=== PATIENT | male | born 1960 | race Caucasian/White ===

== ENCOUNTER 2018-01-07 05:43 | Day surgery (SDC) | payer MEDICARE ==
[2018-01-07] VITALS (8 sets, daily range): BP systolic 90–134; BP diastolic 57–90; PULSE 78–96; RESP 18; TEMP 98–99.3; O2SAT 95–98
[~2018-01-07] VITALS: Ht 180.3 cm; Wt 103.7 kg
[~2018-01-07 05:43] MED LIST: ASPI81 PO; CARV6.25 PO; CLOP75 PO; ENAL5TAB98 PO; FISH1000 PO; LEVO500T3 PO; NIAC500 PO; NORC10TA2 PO; OMEP20TA39 PO; VENL75XR PO
[2018-01-07] MEDS ORDERED: CHLORHEXIDINE GLUCONATE 2 % 1 PACK (2 CLOTHS) TOPICAL PRN (06:45)
[2018-01-07] MEDS: NS 1000 ML IV SCH ×2 (06:45→14:00)
[2018-01-07] MEDS ORDERED: POVIDONE IODINE 5% (ANTISEPSIS KIT) 4 APPLICATIONS EACH NARE SCH (06:45)
[2018-01-07] MEDS ORDERED: POVIDONE IODINE 5% (ANTISEPSIS KIT) 4 APPLICATIONS EACH NARE PRN (06:45)
[2018-01-07] MEDS ORDERED: METOPROLOL TARTRATE 25 MG TAB PO PRN (06:45)
[2018-01-07] MEDS ORDERED: LACTATED RINGER'S 1000 ML IV PRN (06:45)
[2018-01-07] MEDS ORDERED: MUPIROCIN 2% OINT 1 APPLIC/GM SYR NASAL SCH (06:45)
[2018-01-07] MEDS ORDERED: SODIUM CHLORID 0.9% 500 ML IV PRN (06:45)
[2018-01-07] MEDS ORDERED: CHLORHEXIDINE GLUCONATE 2 % 1 PACK (2 CLOTHS) TOPICAL SCH (06:45)
[2018-01-07] MEDS ORDERED: NO Heparin, Lovenox, Coumadin at least 12 hours prior to procedure. PRN (06:45)
[2018-01-07] MEDS ORDERED: VANCOMYCIN 1000 MG/NS 250 ML IV SCH ×2 (06:45)
[2018-01-07 07:15] LABS: AUTOMATED NEUTROPHIL # 4.8 TH/MM3 (1.8-7.7); BASOPHIL # 0.1 TH/MM3 (0-0.2); EOSINOPHIL # 0.7 TH/MM3 (0-0.4); EOSINOPHIL % 7.3 % (0.0-4.0); HEMATOCRIT 40.5 % (39.0-51.0); HEMOGLOBIN 13.7 GM/DL (13.0-17.0); LYMPH % 31.5 % (9.0-44.0); LYMPHOCYTE # 2.9 TH/MM3 (1.0-4.8); MEAN CELL VOLUME 90.2 FL (80.0-100.0); MEAN CORPUSCULAR HEMOGLOBIN 30.5 PG (27.0-34.0); MEAN CORPUSCULAR HGB CONC 33.9 % (32.0-36.0); MEAN PLATELET VOLUME 8.6 FL (7.0-11.0); MONO % 8.2 % (0.0-8.0); MONOCYTE # 0.8 TH/MM3 (0-0.9); PLATELET COUNT 284 TH/MM3 (150-450); RED BLOOD COUNT 4.49 MIL/MM3 (4.50-5.90); RED CELL DISTRIBUTION WIDTH 13.8 % (11.6-17.2); WHITE BLOOD COUNT 9.2 TH/MM3 (4.0-11.0)
[2018-01-07 07:20] LABS: INTERNATIONAL NORMALIZED RATIO 1.1 RATIO; PROTHROMBIN TIME - PATIENT 11.3 SEC (9.8-11.6)
[2018-01-07 07:25] LABS: BICARBONATE 23.4 MEQ/L (21.0-32.0); CREATININE 1.43 MG/DL (0.60-1.30)
[2018-01-07] MEDS ORDERED: VANCOMYCIN 500 MG VIAL ONE (07:42)
[2018-01-07] MEDS ORDERED: LIDOCAINE HCL 2% 20 ML VIAL ONE (07:42)
[2018-01-07] MEDS ORDERED: SODIUM CHLOR 0.9% 250 ML INJ 250 ML ONE (07:42)
[2018-01-07] MEDS ORDERED: VANCOMYCIN HCL 1000 MG VIAL ONE (07:42)
[2018-01-07] MEDS ORDERED: ALPR0.5T3 PO (07:55)
[2018-01-07] MEDS ORDERED: SPIR25 PO (07:55)
[2018-01-07] MEDS ORDERED: ASPI81TA23 PO (07:55)
[2018-01-07] MEDS ORDERED: OMEGCAP PO (08:15)
[2018-01-07] MEDS ORDERED: FENO145T2 PO (08:15)
[2018-01-07] MEDS ORDERED: ENAL10TA PO (08:15)
[2018-01-07] MEDS ORDERED: PLAV75TA29 PO (08:15)
[2018-01-07] MEDS ORDERED: CARV25TA (08:15)
[2018-01-07] MEDS ORDERED: ROSU40 PO (08:15)
[2018-01-07] MEDS ORDERED: MONT10TA4 PO (08:33)
[2018-01-07] MEDS ORDERED: METF500T4 PO (08:33)
[2018-01-07] MEDS ORDERED: SPIR25TA PO (08:33)
[2018-01-07] MEDS ORDERED: [UNRECOGNIZED DRUG - CODE] T-DERMAL (08:33)
[2018-01-07] MEDS ORDERED: NIAC500 PO (08:33)
[2018-01-07] MEDS ORDERED: ROSU1TAB10 PO (08:33)
[2018-01-07] MEDS ORDERED: NITR0.4S SL (08:33)
[2018-01-07] MEDS ORDERED: NIAC500T5 PO (08:33)
[2018-01-07] MEDS ORDERED: FLUTI44I INH (08:33)
[2018-01-07] MEDS ORDERED: TRAM50TA PO (08:33)
[2018-01-07] MEDS ORDERED: OMEP40CA2 (08:33)
--- NOTE | 2018-01-07 09:11 | CATHPROC ---
Patient Name: KIMBERLY SHERIFF Study #: [id number] Initial MD: Elton Faustin Date of : 1960 Study Date: 01/07/2018 Cardiac Catheterization Report 01/07/2018 9:10:51 AM Financial #: [id number] 1 of 8 Patient Name: KIMBERLY SHERIFF Study #: [id number] Initial MD: Elton Faustin Date of : 1960 Study Date: 01/07/2018 Entire Case Report Patient Information Patient Name KIMBERLY SHERIFF Date of 1960 Age 57 years Financial # [id number] Gender M AlternateID Lab Number 6 Room Number DC05 Height (in) 71.0 Height (cm) 180.3 BSA 2.23 Weight (lbs) 228.4 Weight (kg) 103.8 Patient Address/Phone Number Home Address [facility] Home Phone Number [phone] [address] Study Information Study Number Admission Scheduled Start Study Start [id number] Jan 07 2018 5:43AM 01/07/2018 Jan 07 2018 7:03AM [place] [facility] Cardiac Pacer/ICD Admit Source Facility Department Other [facility] - Compensator Physician and Clinical Staff Initial Elton Fraser Police Surgeon Diana Davies,RT(R) TECH2 Other Anesthesia, INTERN PRODUCT MARKETING MANAGER Recorder Umm Salas,DAISY Lainezub Sebastian Benites,RT(R) Procedures Performed Procedure Lead Insertion 01/07/2018 9:10:51 AM Financial #: [id number] 2 of 8 Patient Name: KIMBERLY SHERIFF Study #: [id number] Initial MD: Elton Faustin Date of : 1960 Study Date: 01/07/2018 Equipment Time Gas Derrick Operator Description Size Mfg Part Number Used/Scraped [id number] 08:44 BIOTRONIK LEAD, LINOX SMART S 65 * Used *[id number] DERMABOND, ADHESIVE SKIN [id number] 07:22 CORDIS/PACER * Used GLUE MINI *[id number] 07:22 [employer] BLANKET,WARM AIR CCL * Used *[id number] TP-1103 07:22 MEDLINE INDUSTRIES SUTURE, STRIP PLUS 1/2" * Used *[id number] 07:22 MEDLINE PACER NGO, LIMB * 2530 *[id number] Used [id number] 07:22 MEDLINE PACER PACK, PACER CUSTOM * Used *[id number] 07:42 [employer] PACER SAFE SHEATH, FR8, 13CM FR 8 [id number] Used 08:00 Needle Sponge Count 1 111 Used 08:00 Needle Sponge Count 20 200 Used 08:00 Needle Sponge Count 3 3 Used SUTURE, 0 ETHIBOND [CT1] (CX21D), 8pk SUTURE, 2-0 VICRYL [CT1] ([id number]) SUTURE, 2-0 VICRYL [CT1] ([id number]) [facility] PAD, ELECTROSURGICAL 07:22 * [id number] *[id number] Used SURGICAL GROUNDING ORANGE [id number] 07:42 VITATRON MEDTRONIC PLASMABLADE, PEAD 3.0S * Used *[id number] 07:22 [employer] MEDICAL DEION. / * Used *[id number] Equipment Model, Serial, Lot Number and Expiration Data Description Model Number Serial Number Lot Number Expiration Date LEAD, LINOX SMART S 65 [id number] 09-02-2018 Insurance Information Insurance Payor Medicare Third Libertarian Third Libertarian Number [place] MEDICARE BCMCR History: Allergies Allergy Reaction penicillin G 01/07/2018 9:10:51 AM Financial #: [id number] 3 of 8 Patient Name: KIMBERLY SHERIFF Study #: [id number] Initial MD: Elton Faustin Date of : 1960 Study Date: 01/07/2018 History: Risk Factors Hypertension Dyslipidemia Yes Yes Prior CABG Yes Chronic Lung Diabetes Disease Yes Yes Labs Hgb (g/dl) Hct (%) RBC (MIL/MM3) WBC (l/cumm) Platelets (thousands) 11.60-17.00 35.00-51.00 4.00-5.90 4.00-11.00 150.00-450.00 13.0 40 4.4 9.2 284 INR (PTT:PT) 0.90-1.10 1.1 Medication Medication Total Dose (Bolus/Oral) Medication Total Dosage/Unit 2% XYLOCAINE 50 mL Medications (Bolus/Oral) Medication Time Given Dosage/Unit Administered By Reason 2% XYLOCAINE 01/07/2018 8:38:59 AM 50 mL Elton Faustin 50 mL 2% XYLOCAINE given in lab by Elton Faustin in Left upper chest via Subcutaneous. Medication (Drip) Medication Time Given Dosage/Unit Concentration/Unit Diluent (ml) Solution VANCOMYCIN DRIP 01/07/2018 7:49:20 AM 1 g 1 g VANCOMYCIN DRIP given in lab by Anesthesia, INTERN PRODUCT MARKETING MANAGER via Peripheral IV. Ordered by Elton Faustin. Beatriz son: As per physicians verbal order. 01/07/2018 9:10:51 AM Financial #: [id number] 4 of 8 Patient Name: KIMBERLY SHERIFF Study #: [id number] Initial MD: Elton Faustin Date of : 1960 Study Date: 01/07/2018 Initial Case Assessment Cardiovascular HR Rhythm NIBP 81 af 159/88 Edema Present Skin color Skin None Normal Warm Dry Circulatory - Left Pulses Circulatory - Lower Extremities Color Lower Right Color Lower Left Normal Normal Neurological State Oriented to time-place- Alert Moves all extremities person Respiration - General Respiration Rate SpO2 (%) (B/min) 18 95 01/07/2018 9:10:51 AM Financial #: [id number] 5 of 8 Patient Name: KIMBERLY SHERIFF Study #: [id number] Initial MD: Elton Faustin Date of : 1960 Study Date: 01/07/2018 Final Case Assessment Cardiovascular HR Rhythm NIBP Chest Pain 73 af 112/68 0 Edema Present Skin color Skin None Normal Warm Dry Circulatory - Right Pulses Radial 2 Scale (0,1,2,3,4,d) Scale (0,1,2,3,4,d) Circulatory - Lower Extremities Color Lower Right Color Lower Left Normal Normal Neurological State Oriented to time-place- Alert Moves all extremities person Respiration - General Respiration Rate SpO2 (%) O2 (lpm) (B/min) 16 100 6 Chronological Log Time Study Chronological Log 7:29:05 Patient arrived via Bed. 7:29:06 Patient Name, D.O.B, / Armband Verified By R.N. 7:29:07 Consent signed by the physician and the patient and verified by the Compensator staff. 7:29:09 Anesthesia at bedside. Assumes care of patient. Erika 7:29:12 Pre-op and post- op instructions given; patient acknowledges understanding of instructions. 7:29:14 Verbal Stimulation=2 Physical Stimulation=2 Airway=2 Respiration=2 TOTAL=8. (0=absent, 1=li mited, 2=present) 7:29:26 Patient has been NPO for More than 6Hrs. 7:29:27 Skin Breakdown- reddened dry area anterior R calf 7:29:35 Patient Warmer Placed on the Table. 7:29:38 Disposable Defibrillator Pads Placed On Patient. 7:29:39 Cynthia Prominences Protected 7:29:39 A # 20 IV was noted in the Hand (right). Grade = 0 0.9ns kvo 01/07/2018 9:10:51 AM Financial #: [id number] 6 of 8 Patient Name: KIMBERLY SHERIFF Study #: [id number] Initial MD: Elton Faustin Date of : 1960 Study Date: 01/07/2018 7:29:40 A # 20 IV was noted in the Hand (left). Grade = 0 0.9ns kvo 7:30:12 History and physical on the chart or being dictated. Assessment: Initial Case, HR=81 BPM, Rhythm=af, KJMY=144/88 mmhg, Edema=None, Color=Normal, Ski n = Warm, Dry Left Pulses: Radial=2 7:39:15 Lower Right Extremities: Color=Normal Lower Left Extremities: Color=Normal Neurological: State=Alert, Ox3, ABRAHAM Respiration: Resp=18 B/min, SpO2=95 % 7:49:15 Table restraints applied according to hospital policy 1 g VANCOMYCIN DRIP given in lab by Anesthesia, INTERN PRODUCT MARKETING MANAGER via Peripheral IV. Ordered by Floyd Faustin Reason: As per 7:49:20 physicians verbal order. 7:50:27 2% CHLORHEXIDINE GLUCONATE WASH AND NASAL SWIPE DONE PRIOR TO PROCEDURE. First Sponge And Instrument Count Done by Sebastian Benites, RT(R). 7:57:47 Hypo's: 3, Sponges: 20, Bovie/scratch: 1 Sutures: 10, Blades: 1, Instruments: 26, Syveck Patches: 0 Verified w MM. 7:58:36 Left Upper Chest Prepped Times Two. 8:20:00 MD paged 8:26:00 MD responded 8:32:24 Reference ECG taken 8:34:25 MD arrived. Time Out. Correct patient, procedure, procedure equipment, site and side verified with physicia n present. Time 8:38:02 concurred by MD, individual staff and INTERN PRODUCT MARKETING MANAGER. Time Out #2 - Consents verified, patient in correct position, all results are labled and displa yed, safety precautions 8:38:24 taken, antibiotics administered. Time out concurred by MD, individual staff and INTERN PRODUCT MARKETING MANAGER in procedu re 8:38:50 Case Start 8:38:59 50 mL 2% XYLOCAINE given in lab by Elton Faustin in Left upper chest via Subcutaneous. 8:39:20 Surgical Incision Made. 8:41:27 A device was explanted. 8:44:22 Vascular access was obtained in the Subclav. Vein (Lft. 8:44:31 A SAFE SHEATH, FR8, 13CM FR 8 was advanced into the Subclav. Vein (Lft using the Modified S eldinger technique. 8:47:08 A LEAD, LINOX SMART S 65 * was inserted and positioned in the RV. 8:50:35 Pocket flushed with antibiotic solution 8:51:56 Lead placement verified under fluoroscopy 8:52:02 The Atrial lead was sutured to the fascia. 8:55:28 The old RA lead was capped. Second Sponge And Instrument Count Done by Sebastian Benites, RT(R). 8:58:49 Hypo's: 3, Sponges: 20, Bovie/scratch: 1 Sutures: 10, Blades: 1, Instruments: , Syveck Patches: Verified w HH . 9:03:06 Implant Procedure was performed. 9:03:11 A (Single) ICD Lead replaced 9:03:36 The DFT was Success at 20 Joules, 78 Ohms lead impedance and 4 ms charge time. 9:05:07 PACU called. Spoke to Diana 01/07/2018 9:10:51 AM Financial #: [id number] Patient Name: KIMBERLY SHERIFF Study #: [id number] Initial MD: Elton Fasutin Date of : 1960 Study Date: 01/07/2018 9:05:21 Bedside Report will be given. 9:06:50 Case End (Physician broke scrub) 9:07:03 Steri-strips and a sterile dressing applied to site. Final Sponge And Instrument Count Done by Sebastian Benites RT(R). 9:07:12 Hypo's: 3, Sponges: 20, Bovie/scratch: 1 Sutures: 10, Blades: 1, Instruments: 26, Syveck Patches: 0 Verified w HH. 9:07:32 Sterile dressing applied to site Assessment: Final Case, HR=73 BPM, Rhythm=af, QJEN=297/68 mmhg, Chest Pain=0, Edema=None, [place] r=Normal, Skin = Warm, Dry Right Pulses: Radial=2 9:09:23 Lower Right Extremities: Color=Normal Lower Left Extremities: Color=Normal Neurological: State=Alert, Ox3, ABRAHAM Respiration: Resp=16 B/min, NmW4=398 %, O2=6 lpm 9:09:47 No case complications noted. 9:09:49 Cine recording checked. 9:10:19 A sling was placed on the affected arm. 9:16:11 Patient moved to stretcher End Study - Contrast Media Used In Study Contrast Total Opened (mL) Total Used (mL) Total Wasted (mL) Unspecified 0 0 0 End Study - Radiation Exposure Fluoro Time (minutes) 2.6 End Study - Patient Disposition Complications Transferred To Interventional Outcome No Telemetry Bed successful 01/07/2018 9:10:51 AM Financial #: [id number] 8
[2018-01-07] MEDS ORDERED: DO NOT ADM ANY ANTICOAGULANT DRUGS PRN (09:30)
[2018-01-07] MEDS ORDERED: MAGNESIUM HYDROXIDE SUSP 30 ML CUP PO PRN (10:00)
[2018-01-07] MEDS ORDERED: NON-FORMULARY DRUG (Metformin ER 500 MG) PO SCH (10:00)
[2018-01-07] MEDS ORDERED: ENALAPRIL MALEATE 10 MG TAB PO SCH (10:00)
[2018-01-07] MEDS ORDERED: TEMAZEPAM 15 MG CAP PO PRN (10:00)
[2018-01-07] MEDS ORDERED: FENOFIBRATE 145 MG TAB PO SCH (10:00)
[2018-01-07] MEDS ORDERED: SODIUM CHLORIDE 0.9% FLUSH 10 ML FLUSH IV FLUSH PRN (10:00)
[2018-01-07] MEDS ORDERED: ACETAMINOPHEN/CODEINE 300 MG/30 MG TAB PO PRN ×2 (10:00)
[2018-01-07] MEDS ORDERED: traMADol HCL 50 MG TAB PO PRN (10:00)
--- NOTE | 2018-01-07 10:30 | RADRPT ---
EXAM DATE: 01/07/2018 10:25 AM EDT AGE/SEX: 57 years / Male INDICATIONS: Status post pacemaker. CLINICAL DATA: This is the patient's initial encounter. Patient reports that signs and symptoms have been present for 1 day and indicates a pain score of 0/10. MEDICAL/SURGICAL HISTORY: None. CABG. COMPARISON: No prior exams available for comparison. FINDINGS: The lungs are clear without infiltrate, nodule, or mass. There is no appreciable pleural effusion for technique. Heart and mediastinum are unremarkable. Left subclavian transvenous pacer wi res are present with tips in the right atrium and right ventricle. There is evidence for prior media n sternotomy. CONCLUSION: No acute cardiopulmonary disease. Electronically signed by: Geneva Canales MD 01/07/2018 10:28 AM EDT
--- NOTE | 2018-01-07 10:44 | MP ---
cc: Elton Faustin MD DATE OF OPERATION: 01/07/2018 PROCEDURE PERFORMED: 1. Defibrillator removal. 2. New right ventricular defibrillator insertion. 3. Device testing. INDICATIONS FOR PROCEDURE: A 57-year-old gentleman with ischemic cardiomyopathy, with defibrillator implanted in 2008, recent generator change around 3 years ago. The patient has noise and a high impedance. There was a lead fracture. There was a need for new lead insertion. The risks, the nature and the benefits of the procedure are clearly stated to him. Risks include pneumothorax, cardiac perforation, stroke and even . He understood and agreed to proceed. PROCEDURE: After written informed consent was obtained, the patient was brought to the EP lab where he was evaluated by the anesthesiologist. Once sedation was verified, the left infraclavicular area was anesthetized with 2% Xylocaine. Using #11 blade scalpel, a 3 cm incision was made over the existing generator. This incision was taken down to deep fascial layer using Bovie cautery and blunt dissection. Once exposed, the generator was removed from the pocket. Scar tissue was removed around the lead. Pocket was expanded. Pocket revision was performed. Then, using modified Seldinger technique, the left subclavian vein was cannulated on one occasion, 1 guidewire was advanced. 2-0 Vicryl suture was placed around the wire to prevent backbleeding. At this point, over the wires, 8-Japanese dilator and introducer was advanced. Dilator and wire were removed, an active fixation right ventricular pacing sensing defibrillator lead was advanced. After adequate pacing and sensing thresholds obtained, the lead was secured in the pocket using #2 Ethibond suture. At that point, the pocket was copiously irrigated using antibiotic solution. The leads were disconnected from the generator. The yoke was cut and the lead was capped and left into the pocket. The new lead was connected to the generator and placed into the pocket. I did proceed with device testing. Initial induction consisted of T-wave shock, which induced ventricular fibrillation, was adequately detected and treated by the ICD generator, delivering 20 joule defibrillatory shock, converting the patient back into sinus rhythm. Shocking impedance 78 ohms, charge time 4 seconds. At that point, NIPS was complete. I did proceed with wound closure. The deep fascial layer was approximated using #2-0 Vicryl suture in a continuous fashion. The subcutaneous layer was approximated with 2-0 Vicryl suture in a continuous fashion. The subcuticular layer was approximated with #2-0 Vicryl suture in a continuous fashion. Dermabond adhesive was applied to the wound followed by sterile pressure dressing. There was no complication. The patient tolerated the procedure. Blood loss minimal. 1. Capped RV lead. The capped RV lead is a Biotronik. Please refer to previous dictation. 2. Implanted hardware. The implanted right ventricular pacing sensing defibrillator lead is a Biotronik, model #[id number], serial #[id number]. For information about generator, please refer to previous dictation. 2. Threshold. The right ventricular pacing threshold in bipolar mode was 0.8 volt at 0.4 milliseconds, lead impedance 723 ohms, R-wave at 13.8 millivolt. The right ventricular defibrillator threshold less than or equal to 20 joules. Shocking impedance 78 ohms, charge time 4 seconds. 3. Setting. The device set in VVI 40. Defibrillator portion for 2 zone, 1 zone for ventricular tachycardia between 188-250 beats per minute. Initial therapy consists of 1 burst of ATP, 1 ramp, 81% 10 pulse, 70 second decremental, followed by 20 then 30, and a second shock at 40 joule defibrillatory shock. Second zone for ventricular fibrillation above 240 beats per minute, first therapy at 30 and a second shock at 40 joule defibrillatory shock. CONCLUSION: Successful defibrillator removal, new right ventricular defibrillator lead insertion, pocket revision and device testing. COMMENT AND RECOMMENDATION: The patient is going to be transferred to the recovery room. Will be observed and when stable, can be discharged home. MD ERIK Arguelles/ERIN , 10:14 AM , 10:43 AM
[2018-01-07] MEDS: CARVEDILOL 12.5 MG TAB PO SCH ×2 (11:30→21:00)
[2018-01-07] MEDS ORDERED: ONDANSETRON ODT 4 MG TAB SL PRN (11:30)
[2018-01-07] MEDS ORDERED: ONDANSETRON HCL 4 MG/2 ML VIAL IV ONE (12:00)
[2018-01-07] MEDS ORDERED: PHENYLEPH/NS 1000 MCG/10 ML SYR IV ONE (12:00)
[2018-01-07] MEDS ORDERED: LIDOCAINE HCL 1% PF 5 ML SYRINGE OTHER ONE (12:00)
[2018-01-07] MEDS ORDERED: PROPOFOL 200 MG/20 ML AMP IV ONE (12:00)
[2018-01-07] MEDS: CLOPIDOGREL 75 MG TAB PO SCH (12:00)
[2018-01-07] MEDS ORDERED: VENL100T PO (12:41)
[2018-01-07] MEDS ORDERED: SACU1TAB7 PO (12:41)
[2018-01-07] MEDS: ALPRAZolam 0.5 MG TAB PO PRN (12:59)
--- NOTE | 2018-01-07 15:30 | EKG ---
Date Performed: 01/07/2018 Time Performed: 06:55:58 PTAGE: 57 years EKG: Sinus rhythm . Inferior infarct - age undetermined Since the previous tracing, no significant change noted Abnorma l ECG PREVIOUS TRACING :11/14/2014 @ 1053 DOCTOR: Lolis Bedolla Interpretating Date/Time 01/07/2018 15:28:23
[2018-01-07] MEDS ORDERED: NON-FORMULARY DRUG (Rosuvastatin 40 MG) PO SCH (16:00)
[2018-01-07] MEDS: SPIRONOLACTONE 25 MG TAB PO SCH (16:35)
[2018-01-07] MEDS: metFORMIN HCL 500 MG TAB PO SCH (17:18)
[2018-01-07] MEDS ORDERED: NIACIN 500 MG EXTENDED RELEASE TAB PO SCH (21:00)
[2018-01-07] MEDS ORDERED: SPIRONOLACTONE 25 MG TAB PO SCH (21:00)
[2018-01-07] MEDS ORDERED: MONTELUKAST SODIUM 10 MG TAB PO SCH (21:00)
[2018-01-07] MEDS: FLUTICASONE PROPIONATE 44 MCG/ACT 10.6 GM INHALER INH SCH (21:00)
[2018-01-07] MEDS: SODIUM CHLORIDE 0.9% FLUSH 10 ML FLUSH IV FLUSH SCH (21:52)
[2018-01-08] VITALS (11 sets, daily range): BP systolic 103–122; BP diastolic 53–60; PULSE 82–97; RESP 18; TEMP 98.3–101.1; O2SAT 95–96
[2018-01-08] MEDS ORDERED: LEVA500T33 PO (08:02)
--- NOTE | 2018-01-08 08:09 | PD.CARD.PN ---
Subjective Subjective Remarks Feels okay. Objective Medications Current Medications Medications (Trade) Dose Ordered Sig/Chito Route Start Time Stop Time Status Last Admin ([facility] Nursing Information) NO Heparin, Loven... UNSCH PRN .XX 01/07/18 06:45 01/11/18 06:44 Sodium Chloride 1,000 ml @ 30 mls/hr Q24H IV 01/07/18 06:45 01/07/18 06:45 Vancomycin HCl 1000 mg/ Vancomycin/Sodium Chloride 200 ml @ 200 mls/hr ACCOUNT CONTACT ASSOCIATE IV 01/07/18 06:45 01/10/18 06:44 (Betadine 5% Antisepsis Kit) 2 applic ACCOUNT CONTACT ASSOCIATE EACH NARE 01/07/18 06:45 01/10/18 06:44 (Bactroban Nasal 2% Oint) 1 applic ACCOUNT CONTACT ASSOCIATE NASAL 01/07/18 06:45 01/10/18 06:44 (Chlorhexidine 2% Cloth) 3 pack ACCOUNT CONTACT ASSOCIATE TOPICAL 01/07/18 06:45 01/10/18 06:44 (Restoril) 15 mg HS PRN PO 01/07/18 10:00 (Milk Of Magnesia Liq) 30 ml Q6H PRN PO 01/07/18 10:00 (Zofran Odt) 4 mg Q4H PRN SL 01/07/18 11:30 (Tylenol-Codeine #3) 1 tab Q4H PRN PO 01/07/18 10:00 01/08/18 03:41 (Tylenol-Codeine #3) 2 tab Q4H PRN PO 01/07/18 10:00 (NS Flush) 2 ml BID IV FLUSH 01/07/18 21:00 01/07/18 21:52 (NS Flush) 2 ml UNSCH PRN IV FLUSH 01/07/18 10:00 Levofloxacin/ Dextrose 100 ml @ 100 mls/hr ONCE ONCE IV 01/08/18 12:00 01/08/18 12:59 (Xanax) 0.5 mg DAILY PRN PO 01/07/18 10:00 01/07/18 12:59 (Ecotrin Ec) 81 mg DAILY PO 01/08/18 09:00 (Coreg) 25 mg BID PO 01/07/18 11:30 01/07/18 21:00 (Plavix) 75 mg DAILY PO 01/07/18 12:00 01/07/18 12:00 (Flovent Hfa 44 Mcg Inh) 1 puff BID INH 01/07/18 21:00 01/07/18 21:00 (Singulair) 10 mg HS PO 01/07/18 21:00 01/07/18 21:52 (Slo-Niacin) 500 mg HS PO 01/07/18 21:00 01/07/18 21:52 (Aldactone) 25 mg HS PO 01/07/18 21:00 01/07/18 21:52 (Aldactone) 25 mg DAILY PO 01/07/18 10:00 (Ultram) 50 mg Q6H PRN PO 01/07/18 10:00 (Protonix) 40 mg DAILY PO 01/08/18 09:00 (Lipitor) 80 mg DAILY PO 01/08/18 09:00 ([facility] Nursing Information) ALL NURSING DEPARTME... UNSCH PRN .XX 01/07/18 09:30 01/08/18 09:29 (Effexor) 100 mg DAILY PO 01/08/18 09:00 (Entresto 49-51 Mg) 1 tab BID NEB PO 01/08/18 20:00 (Glucophage) 500 mg BID@0900,1800 PO 01/07/18 18:00 01/07/18 17:18 (Niacin) 500 mg DAILY PO 01/08/18 09:00 (Tricor) 145 mg DAILY PO 01/08/18 15:46 Vital Signs / I&O Vital Signs Date Time Temp Pulse Resp B/P (MAP) Pulse Ox O2 Delivery O2 Flow Rate FiO2 01/08/18 06:00 86 01/08/18 05:00 86 01/08/18 04:00 101.1 89 18 103/53 (70) 96 01/08/18 04:00 86 01/08/18 03:00 84 01/08/18 02:00 90 01/08/18 01:00 92 01/08/18 00:00 96 01/08/18 00:00 99.2 97 18 104/57 (73) 95 01/07/18 23:00 96 01/07/18 22:00 84 01/07/18 21:00 84 01/07/18 20:00 99.3 88 18 134/67 (89) 96 01/07/18 20:00 84 01/07/18 19:00 84 01/07/18 18:08 81 01/07/18 16:26 98.2 78 18 90/57 (68) 95 01/07/18 10:05 97.6 76 20 108/58 (75) 99 Nasal Cannula 2 01/07/18 09:45 78 20 129/74 (92) 99 Nasal Cannula 2 01/07/18 09:29 97.6 82 20 135/89 (104) 99 Nasal Cannula 2 I/O 01/07/18 01/07/18 01/07/18 01/08/18 01/08/18 01/08/18 07:00 15:00 23:00 07:00 15:00 23:00 Intake Total 240 ml 480 ml Output Total 450 ml 425 ml Balance -210 ml 55 ml Intake Oral 240 ml 480 ml Output Urine Total 450 ml 425 ml # Voids 1 # Bowel Movements 0 1 Physical Exam GENERAL: Well-nourished, well-developed patient. SKIN: Warm and dry. Left chest wall incision well approximated without erythema or drainage. HEAD: Normocephalic. EYES: No scleral icterus. No injection or drainage. NECK: Supple, trachea midline. No JVD or lymphadenopathy. CARDIOVASCULAR: Regular rate and rhythm without murmurs, gallops, or rubs. RESPIRATORY: Breath sounds equal bilaterally. No accessory muscle use. GASTROINTESTINAL: Abdomen soft, non-tender, nondistended. EXTREMITIES: No cyanosis, or edema. NEUROLOGICAL: Awake, alert, and oriented x 3. Non-focal. Imaging Last Impressions Chest X-Ray 01/07/18 0000 Signed Impressions: CONCLUSION: No acute cardiopulmonary disease. Assessment and Plan Problem List: (1) AICD lead displacement ICD Codes: T82.120A - Displacement of cardiac electrode, initial encounter Status: Acute Plan: Stable status post insertion of new RV AICD lead secondary to lead fracture. Fractured lead capped, retained. Device function appropriate. No pneumothorax seen on chest x-ray. Stable for discharge home. Follow-up with Dr. Faustin in 2 weeks per my discussion with him. Problem Qualifiers (1) AICD lead displacement: Qualified Codes: T82.120A - Displacement of cardiac electrode, initial encounter Manisha Ritchie Jan 08, 2018 08:09
[2018-01-08] MEDS: SODIUM CHLORIDE 0.9% FLUSH 10 ML FLUSH IV FLUSH SCH (08:43)
[2018-01-08] MEDS: CLOPIDOGREL 75 MG TAB PO SCH (08:45)
[2018-01-08] MEDS: CARVEDILOL 12.5 MG TAB PO SCH (08:55)
[2018-01-08] MEDS: SPIRONOLACTONE 25 MG TAB PO SCH (08:55)
[2018-01-08] MEDS: ALPRAZolam 0.5 MG TAB PO PRN (08:59)
[2018-01-08] MEDS ORDERED: VENLAFAXINE HCL 25 MG TAB PO SCH (09:00)
[2018-01-08] MEDS ORDERED: NON-FORMULARY DRUG (Niacin 500 MG) PO SCH (09:00)
[2018-01-08] MEDS ORDERED: SACUBITRIL/VALSARTAN 49 MG-51 MG TAB PO SCH ×2 (09:00→20:00)
[2018-01-08] MEDS ORDERED: ASPIRIN EC 81 MG TABEC PO SCH (09:00)
[2018-01-08] MEDS ORDERED: PANTOPRAZOLE SOD 40 MG DELAYED RELEASE TAB PO SCH (09:00)
[2018-01-08] MEDS ORDERED: NIACIN 100 MG TAB PO SCH (09:00)
[2018-01-08] MEDS ORDERED: NON-FORMULARY DRUG (Fish Oil-Cholecalciferol (Omega-3 Fish Oil/Vitamin) 1 CAP) PO SCH (09:00)
[2018-01-08] MEDS ORDERED: ATORVASTATIN 80 MG TAB PO SCH (09:00)
[2018-01-08] MEDS: metFORMIN HCL 500 MG TAB PO SCH (10:08)
[2018-01-08] MEDS: FLUTICASONE PROPIONATE 44 MCG/ACT 10.6 GM INHALER INH SCH (10:08)
[2018-01-08] MEDS ORDERED: LEVOFLOXACIN 500 MG PREMIX INJ 100 ML IV ONE (12:00)
[2018-01-08] MEDS ORDERED: FENOFIBRATE 145 MG TAB PO SCH (15:46)
--- NOTE | 2018-01-08 15:46 | EKG ---
Date Performed: 01/08/2018 Time Performed: 05:23:02 PTAGE: 57 years EKG: Sinus rhythm Inferior infarct - age undetermined Since the previous tracing, no significant change noted Abnormal ECG PREVIOUS TRACING : 01/07/2018 06.55 DOCTOR: Eugenia Marino Interpretating Date/Time 01/08/2018 15:44:50
== END 2018-01-08 10:47 | disposition home or self-care (01) ==
LOC: HDOC 05:43 → HDIC 05:43 → HCIS 17:04 → HDOC 01-08 10:47
PROVIDERS: ATTEND Internal Medicine Interventional Cardiology
DX: T82.110A Breakdown (mechanical) of cardiac electrode, initial encounter (principal); I50.9 Heart failure, unspecified; I25.5 Ischemic cardiomyopathy; I25.810 Atherosclerosis of coronary artery bypass graft(s) without angina pectoris; Z95.1 Presence of aortocoronary bypass graft; F17.200 Nicotine dependence, unspecified, uncomplicated
CPT/HCPCS: 00534; 33216; 71045; 80048; 82948; 85025; 85610; 85730; 86850; 86900; 86901; 93005; 93641; C1777; J2370; J2405; J3370; J7030; J7050